=== PATIENT | female | born 2000 | race African-American/Black ===

== ENCOUNTER 2021-09-06 16:04 | Emergency (ER) | payer OTHER ==
[~2021-09-06] VITALS: Ht 160 cm; Wt 58.1 kg
[2021-09-06] MEDS ORDERED: ENBRACE HR SOF1 EACH PO (16:21)
[2021-09-06 17:10] LABS: ABSOLUTE LYMPHOCYTES 2.4 thou/uL (0.8-5.3); ABSOLUTE MONOCYTES 0.7 thou/uL (0.0-1.2); ABSOLUTE NEUTROPHILS 5.9 thou/uL (1.6-8.1); BASOPHILS 0.3 %; EOSINOPHILS 0.2 %; HEMOGLOBIN 10.7 gm/dL (12.0-15.0); LYMPHOCYTES 26.3 %; MCH 30.8 pg (26.0-34.0); MCHC 33.4 g/dL (28.0-37.0); MCV 92.2 fL (80.0-100.0); MONOCYTES 7.3 %; NUCLEATED RBCS 0 /100WBC; PLATELET COUNT* 182 thou/uL (150-400); POLYS 65.9 %; RBC 3.48 mil/uL (4.20-5.00); RDW-CV 14.2 % (10.5-14.5)
[2021-09-06 17:21] LABS: CALCIUM 8.2 mg/dL (8.5-10.1); CREATININE 0.8 mg/dL (0.6-1.3); POTASSIUM 3.3 mmol/L (3.5-5.1)
[2021-09-06 17:25] LABS: ALBUMIN 2.8 g/dL (3.4-5.0); TOTAL BILIRUBIN 0.3 mg/dL (<0.1-1.0); TOTAL PROTEIN 7.4 g/dL (6.4-8.2)
[2021-09-06 18:22] VITALS: BP 121/69
== END 2021-09-06 18:22 | disposition short-term general hospital (02) ==
LOC: M.ERS 16:04
PROVIDERS: Student in an Organized Health Care Education/Training Program
DX: O26.893 Other specified pregnancy related conditions, third trimester (principal); R10.30 Lower abdominal pain, unspecified; Z3A.29 29 weeks gestation of pregnancy; Z79.899 Other long term (current) drug therapy; Z88.2 Allergy status to sulfonamides